=== PATIENT | female | born 1970 | race African-American/Black ===

== ENCOUNTER 2019-06-12 19:16 | Observation (INO) | payer BC, SELFPAY ==
[~2019-06-12 19:16] MED LIST: Iopamidol-370 76% 500 ML 1 ML ONE
[2019-06-12 19:47] LABS: #Basophils 0.1 thou/uL (0.0-0.2); #Eosinphils 0.3 thou/uL (0.0-0.7); #Lymphocytes 1.3 thou/uL (1.20-3.40); #Monocytes 0.4 thou/uL (0.11-0.59); #Neutrophils 6.2 thou/uL (1.40-6.50); %Basophils 0.6 % (0.0-1.0); %Eosinophils 3.6 % (0.0-10.0); %Lymphocytes 15.3 % (21.0-51.0); %Monocytes 5.4 % (0.0-10.0); %Neutrophils 75.2 % (42.0-75.0); Hemoglobin 13.9 g/dL (12.0-16.0); Mean Corpuscular HGB CONC 34.3 g/dL (32.0-36.0); Mean Corpuscular Hemoglobin 28.5 pg (27.0-31.0); Mean Corpuscular Volume 83.2 fL (78.0-98.0); Mean Platelet Volume 8.8 fL (7.4-10.4); Platelet Count 297 thou/uL (130-400); RBC Distribution Width 13.1 % (11.5-14.5); Red Blood Cell (RBC) Count 4.86 mill/uL (4.20-5.40); White Blood Cell (WBC) Count 8.2 thou/uL (4.8-10.8)
[2019-06-12 20:10] LABS: ALT (SGPT) 58 U/L (8-55); AST (SGOT) 69 U/L (5-34); Albumin 4.2 g/dL (3.5-5.0); Alkaline Phosphatase 118 U/L (40-110); Anion Gap 14 mmol/L (10-20); BUN (Urea Nitrogen) 10 mg/dL (7.0-18.7); Bilirubin, Total 0.8 mg/dL (0.2-1.2); CK (CPK) 68 U/L (29-168); Calc. Creatinine Clearance 0 mL/min (70-130); Carbon Dioxide 26 mmol/L (22-29); Chloride 103 mmol/L (98-107); Estimated GFR-MDRD 72; Globulin 3.5 g/dL (2.4-3.5); Glucose 120 mg/dL (70-105); Lipase 19 U/L (8-78); Protein, Total 7.7 g/dL (6.0-8.3); Sodium 140 mmol/L (136-145)
[2019-06-12 20:12] LABS: Potassium 2.7 mmol/L (3.5-5.1)
--- NOTE | 2019-06-12 20:17 | RAD ---
Portable frontal chest radiograph: 06/12/2019 COMPARISON: None HISTORY: Short of breath FINDINGS: Lungs are clear. Heart and mediastinal contours appear within normal limits. IMPRESSION: No acute findings.
[2019-06-12] MEDS ORDERED: Nitroglycerin 2% Ointment 1 INCH/1 GM Packet ONE (20:18)
--- NOTE | 2019-06-12 22:24 | CT ---
CT angiogram chest: 06/12/2019 COMPARISON: None HISTORY: Chest pain, assess for pulmonary arterial embolism TECHNIQUE: Axial CT imaging at 2.5 mm intervals through the chest with IV contrast using CT angiogram protocol. Coronal and oblique sagittal 3-D reformatted imaging obtained. FINDINGS: There are cholecystectomy clips present. Scattered small hypodensities within the left lobe of the liver suggest small cysts. No pleural, pericardial, or mediastinal fluid noted. There is an incompletely assessed hypodense lesion within the upper pole of the left kidney, better a ssessed on CT abdomen pelvis performed 10/23/2018. No evidence for acute pulmonary arterial embolism is noted. No pneumothorax on either side. Lung pare nchyma demonstrates no acute findings. No acute osseous abnormality. IMPRESSION: No evidence for pulmonary arterial embolism.
[2019-06-12] MEDS ORDERED: Aspirin Chewable 81 MG TAB ONE (23:10)
[2019-06-13] MEDS ORDERED: Nitroglycerin 0.4 MG TAB (25 Tab Bottle) PO PRN (00:26)
[2019-06-13 00:27] LABS: Phosphorus Less than 1.0 mg/dL (2.3-4.7)
[2019-06-13] MEDS ORDERED: Acetaminophen 325 MG TAB PO PRN (00:29)
[2019-06-13] MEDS ORDERED: Acetaminophen 650 MG Suppository PR PRN (00:29)
--- NOTE | 2019-06-13 00:37 | PDOC.HHP ---
Hospitalist HPI - History of Present Illness Chest pain History of Present Illness: Patient states she developed sudden chest pain while laying down watching TV this evening at 8pm. It was substernal, moving down and below her left breast. She also experienced discomfort in the left side of her neck. States that eased quickly but the chest pain remained constant. She described a sharp pain that was an 8/10 in severity. Reports breathing quickly and then felt numbness in both hands and her face. Her pain started to ease and on arrival was a 5/10 in severity. Since receiving aspirin and nitro bid she states her pain has become mild, 2/10 in severity. She is s/p lap cholecystectomy 1 week ago. Continues to have daily bowel movements. Reports mild discomfort due to surgery, described as sensitivity at incisions. Denies any fever or chills. No cough or hemoptysis. No n/v. Denies any headaches or dizziness. Has never had pain like this before and has never had cardiac investigations. ED Course: In the ED she had an EKG done showing a sinus arrhythmia. HR was 82. Labs done showed slightly elevated LFTs, lipase was normal. CBC normal. Her trop was negative. Potassium was low at 2.7. D-Dimer was done and elevated, prompting a CTA which was negative. CXR done was also unremarkable. She was given 60 mEq of Potassium. Aspirin 324 mg PO x 1 and 0.5 inch of nitro-bid placed. Hospitalist ROS - Review of Systems Constitutional: denies: fever, chills, sweats, weakness, malaise, other Eyes: denies: pain, vision change, conjunctivae inflammation, eyelid inflammation, redness, other ENT: denies: ear pain, ear discharge, nose pain, nose discharge, nose congestion , mouth pain, mouth swelling, throat pain, throat swelling, other Respiratory: reports: shortness of breath (reports hyperventilating when pain began, has improved.). denies: cough, dry, hemoptysis, SOB with excertion, pleuritic pain, sputum, wheezing, other Cardiovascular: reports: chest pain. denies: palpitations, orthopnea, paroxysmal noc. dyspnea, edema, light headedness, other Gastrointestinal: denies: nausea, vomiting, abdominal pain, diarrhea, constipation, melena, hematochezia, other Musculoskeletal: reports: neck pain (left side, lasting brief time). denies: shoulder pain, arm pain, back pain, hand pain, leg pain, foot pain, other Skin: denies: rash, lesions, jessica, bruising, other Neurological: denies: weakness, numbness, incoordination, change in speech, confusion, seizures, other Hospitalist History - Past Medical History Cardiac: reports: HTN - Past Surgical History Past Surgical History: reports: Appendectomy, Cholecystectomy, (x3), Hysterectomy - Family History Family History: reports: no pertinent history - Social History Smoking Status: Never smoker Alcohol: reports: None Drugs: reports: none Living Situation: With Family Activity level: independent ambulation - Exam General Appearance: NAD, awake alert Eye: PERRL, anicteric sclera ENT: normocephalic atraumatic, no oropharyngeal lesions, moist mucosa Neck: supple, symmetric, no lymphadenopathy Heart: RRR, no murmur, no gallops, no rubs, normal peripheral pulses Respiratory: CTAB, no wheezes, no rales, no ronchi, normal chest expansion, no tachypnea Gastrointestinal: soft, non-tender, non-distended, normal bowel sounds, no palpable masses, no guarding, no rigidity Extremities: no cyanosis, no clubbing, no edema Skin: normal turgor, no lesions, no rashes Neurological: cranial nerve grossly intact, normal sensation to touch, no weakness, no focal deficits, no new deficit Musculoskeletal: normal tone, normal strength, no muscle wasting Psychiatric: normal affect, normal behavior, A&O x 3 Hospitalist Results - Labs Result Diagrams: 06/12/19 19:38 06/12/19 19:39 Lab results: WBC 8.2 thou/uL (4.8-10.8) 06/12/19 19:38 Hgb 13.9 g/dL (12.0-16.0) 06/12/19 19:38 Hct 40.4 % (36.0-47.0) 06/12/19 19:38 MCV 83.2 fL (78.0-98.0) 06/12/19 19:38 Plt Count 297 thou/uL (130-400) 06/12/19 19:38 Neutrophils % 75.2 % (42.0-75.0) H 06/12/19 19:38 Sodium 140 mmol/L (136-145) 06/12/19 19:39 Potassium 2.7 mmol/L (3.5-5.1) L* 06/12/19 19:39 Chloride 103 mmol/L (98-107) 06/12/19 19:39 Carbon Dioxide 26 mmol/L (22-29) 06/12/19 19:39 BUN 10 mg/dL (7.0-18.7) 06/12/19 19:39 Creatinine 0.99 mg/dL (0.6-1.1) 06/12/19 19:39 Glucose 120 mg/dL (70-105) H 06/12/19 19:39 Calcium 10.0 mg/dL (7.8-10.44) 06/12/19 19:39 Total Bilirubin 0.8 mg/dL (0.2-1.2) 06/12/19 19:39 AST 69 U/L (5-34) H 06/12/19 19:39 ALT 58 U/L (8-55) H 06/12/19 19:39 Alkaline Phosphatase 118 U/L (40-110) H 06/12/19 19:39 Creatine Kinase 68 U/L (29-168) 06/12/19 19:39 Troponin I 0.013 ng/mL (< 0.028) 06/12/19 19:39 Serum Total Protein 7.7 g/dL (6.0-8.3) 06/12/19 19:39 Albumin 4.2 g/dL (3.5-5.0) 06/12/19 19:39 Lipase 19 U/L (8-78) 06/12/19 19:39 - Radiology Interpretation CT scan - chest Status: report reviewed by ak Hospitalist H&P A/P - Problem (1) Chest pain Code(s): R07.9 - CHEST PAIN, UNSPECIFIED Status: Acute (2) Hypokalemia Code(s): E87.6 - HYPOKALEMIA Status: Acute (3) Hypophosphatemia Code(s): E83.39 - OTHER DISORDERS OF PHOSPHORUS METABOLISM Status: Acute (4) Hypertension Code(s): I10 - ESSENTIAL (PRIMARY) HYPERTENSION Status: Chronic (5) Status post cholecystectomy Code(s): Z90.49 - ACQUIRED ABSENCE OF OTHER SPECIFIED PARTS OF DIGESTIVE TRACT Status: Acute - Plan Plan: Continue to trend troponins. Cardiac monitoring. Stress test in AM. Echo ordered. Lipid panel in AM as well as repeat electrolytes. Replace phosphorus with Kphos 30 mmol IV x 1. Potassium has been replaced, monitor. Patient asymptomatic at present. Monitor BP and resume home meds once verified. CODE STATUS: FULL CODE. Surrogate decision maker: Luis Douglass. Discussed with attending who agrees with plan as above.
[2019-06-13] MEDS ORDERED: Potassium Chloride 20 MEQ TAB ONE (00:45)
[2019-06-13] MEDS ORDERED: Sodium Chloride 0.45% 1,000 ML IV SCH (00:45)
[2019-06-13] MEDS ORDERED: Potassium Phosphate 30 MMOL in Sodium Chloride 0.9% 500 ML IVPB SCH (01:30)
[2019-06-13 06:02] LABS: #Basophils 0.1 thou/uL (0.0-0.2); #Eosinphils 0.3 thou/uL (0.0-0.7); #Lymphocytes 1.4 thou/uL (1.20-3.40); #Monocytes 0.6 thou/uL (0.11-0.59); #Neutrophils 3.5 thou/uL (1.40-6.50); %Eosinophils 5.9 % (0.0-10.0); %Lymphocytes 23.9 % (21.0-51.0); %Monocytes 9.4 % (0.0-10.0); %Neutrophils 59.8 % (42.0-75.0); Hemoglobin 12.5 g/dL (12.0-16.0); Mean Corpuscular HGB CONC 32.5 g/dL (32.0-36.0); Mean Corpuscular Hemoglobin 27.2 pg (27.0-31.0); Mean Corpuscular Volume 83.8 fL (78.0-98.0); Mean Platelet Volume 9.1 fL (7.4-10.4); Platelet Count 260 thou/uL (130-400); RBC Distribution Width 13.1 % (11.5-14.5); Red Blood Cell (RBC) Count 4.58 mill/uL (4.20-5.40); White Blood Cell (WBC) Count 5.9 thou/uL (4.8-10.8)
[2019-06-13 06:43] LABS: Troponin I Less than 0.010 ng/mL (< 0.028)
[2019-06-13 06:49] LABS: ALT (SGPT) 51 U/L (8-55); AST (SGOT) 39 U/L (5-34); Albumin 3.9 g/dL (3.5-5.0); Alkaline Phosphatase 104 U/L (40-110); Anion Gap 14 mmol/L (10-20); BUN (Urea Nitrogen) 8 mg/dL (7.0-18.7); Bilirubin, Total 0.6 mg/dL (0.2-1.2); Calc. Creatinine Clearance 0 mL/min (70-130); Calcium 9.1 mg/dL (7.8-10.44); Carbon Dioxide 25 mmol/L (22-29); Cardiac Risk 4.7 (Less than 4.5); Chloride 109 mmol/L (98-107); Cholesterol 182 mg/dl (< 200 Desired); Estimated GFR-MDRD 81; Globulin 2.7 g/dL (2.4-3.5); Glucose 96 mg/dL (70-105); HDL Cholesterol 39 mg/dL (>60 Neg Risk); LDL Cholesterol, Calculated 126 mg/dL; Potassium 3.9 mmol/L (3.5-5.1); Protein, Total 6.6 g/dL (6.0-8.3); Sodium 144 mmol/L (136-145); Triglycerides 83 mg/dL (Less than 150)
[2019-06-13 07:38] VITALS: BMI 30.8
[2019-06-13] MEDS ORDERED: Amlodipine 10 MG TAB PO SCH (09:00)
[2019-06-13] MEDS ORDERED: Famotidine 20 MG TAB PO SCH (09:00)
[2019-06-13] MEDS ORDERED: Magnesium Chloride 64 MG TAB PO SCH (09:00)
[2019-06-13] MEDS ORDERED: Aspirin 81 mg Enteric Coated Tablet PO SCH (09:00)
--- NOTE | 2019-06-13 13:09 | PDOC.HOSPP ---
- Subjective Encounter Date: 06/13/19 Encounter Time: 08:45 Subjective: Patient seen and examined. No new complaints. No overnight events - Objective Vital Signs & Weight: Vital Signs (12 hours) Pulse Resp BP Pulse Ox 06/13/19 07:15 84 16 149/93 H 100 Weight Weight 174 lb Result Diagrams: 06/13/19 05:50 06/13/19 05:50 Radiology Reviewed by me: Yes EKG Reviewed by me: Yes Hospitalist ROS - Review of Systems ENT: denies: ear pain, ear discharge, nose pain, nose discharge, nose congestion , mouth pain, mouth swelling, throat pain, throat swelling, other Respiratory: denies: cough, dry, shortness of breath, hemoptysis, SOB with excertion, pleuritic pain, sputum, wheezing, other Cardiovascular: denies: chest pain, palpitations, orthopnea, paroxysmal noc. dyspnea, edema, light headedness, other Gastrointestinal: denies: nausea, vomiting, abdominal pain, diarrhea, constipation, melena, hematochezia, other Genitourinary: denies: dysuria, frequency, incontinence, hematuria, retention, other Musculoskeletal: denies: neck pain, shoulder pain, arm pain, back pain, hand pain, leg pain, foot pain, other - Medication Medications: Active Medications Generic Name Dose Route Start Last Admin Trade Name Shashiq PRN Reason Stop Dose Admin Amlodipine Besylate 10 mg 06/13/19 09:00 06/13/19 09:56 Norvasc PO 10 mg DAILY KAROL Administration Aspirin 81 mg 06/13/19 09:00 06/13/19 09:56 Ecotrin PO 81 mg DAILY KAROL Administration Famotidine 20 mg 06/13/19 09:00 06/13/19 09:56 Pepcid PO 20 mg BID KAROL Administration Sodium Chloride 1,000 mls @ 50 mls/hr 06/13/19 00:45 06/13/19 01:57 1/2 Normal Saline IV 1,000 mls .Q20H KAROL Administration Magnesium Chloride 64 mg 06/13/19 09:00 06/13/19 09:56 Slow-Mag PO 64 mg BID KAROL Administration Sodium Chloride 10 ml 06/13/19 09:00 06/13/19 09:57 Flush - Normal Saline IVF Not Given Q12HR KAROL - Exam General Appearance: NAD, awake alert Eye: PERRL, anicteric sclera ENT: normocephalic atraumatic, no oropharyngeal lesions Neck: supple, symmetric, no JVD, no thyromegaly Heart: RRR, no murmur, no gallops, no rubs Respiratory: CTAB, no wheezes, no rales, no ronchi Gastrointestinal: soft, non-tender, non-distended, normal bowel sounds Extremities: no cyanosis, no clubbing, no edema Skin: normal turgor, no lesions Neurological: cranial nerve grossly intact, no focal deficits Musculoskeletal: normal tone, normal strength Psychiatric: normal affect, normal behavior Hosp A/P (1) Chest pain Code(s): R07.9 - CHEST PAIN, UNSPECIFIED Status: Acute (2) Hypokalemia Code(s): E87.6 - HYPOKALEMIA Status: Acute (3) Hypophosphatemia Code(s): E83.39 - OTHER DISORDERS OF PHOSPHORUS METABOLISM Status: Acute (4) Hypertension Code(s): I10 - ESSENTIAL (PRIMARY) HYPERTENSION Status: Chronic - Plan old records reviewed/req stress test and echo medication reviewed and continue to provide symptomatic care
[2019-06-13] MEDS ORDERED: ADENOSINE 60 MG/20 ML VIAL ONE (14:52)
[2019-06-13 16:05] VITALS: BP 146/89; TEMP 98.8
--- NOTE | 2019-06-13 16:20 | NM ---
NM Cardiac Stress W EF WF History: Chest pain Comparison: Stress and rest performed after the intravenous administration of 27 and 9.3 mCi techneti um 99m sestamibi, respectively. Findings: Adequate left ventricular uptake of radiotracer. No evidence for scar or ischemia. Normal w all motion. Calculated ejection fraction is 66%. Impression: Normal nuclear medicine cardiac stress test and ejection fraction.
--- NOTE | 2019-06-14 08:01 | DIS ---
DATE OF ADMISSION: 06/13/2019 DATE OF DISCHARGE: 06/13/2019 PRIMARY CARE PHYSICIAN: Grover Admission. DISCHARGE DISPOSITION: Home. PRIMARY DISCHARGE DIAGNOSES: 1. Chest pain, ruled out acute coronary syndrome. 2. Abnormal electrolytes with hypokalemia and hypophosphatemia, replaced. SECONDARY DISCHARGE DIAGNOSIS: Hypertension. PRIMARY PROCEDURE/OPERATION: None. RADIOLOGICAL INVESTIGATION: CT angiography negative for PE. Chest x-ray normal. Stress test negative for any ischemia. Echocardiography showed normal EF. SIGNIFICANT LABORATORY DATA: Hemoglobin 12.5, creatinine 0.89. Cardiac enzyme negative. DISCHARGE MEDICATIONS: The patient will continue amlodipine 10 mg p.o. daily. CONTRAINDICATION: None. CODE STATUS: Full code. INPATIENT BUSINESS ANALYST: None. ALLERGIES: NO KNOWN DRUG ALLERGIES. DISCHARGE PLAN: Posthospital the patient will follow up with primary care physician. HOSPITAL COURSE: A 49-year-old female who was admitted by Kaycee Carlos. Please see her H and P for further details. The patient was having initially chest pain. In the emergency room, chest x-ray and CT angio negative for any PE. Subsequently, patient was observed on telemetry floor. Her serial cardiac enzymes were negative. The patient had abnormal electrolytes that was replaced while in hospital. The patient was completely asymptomatic. While in the hospital, we did a stress test that came back negative. Echocardiography is normal. The patient wanted to go home and that is why we discharged her on previous medication. The patient will follow up with primary care physician. Job ID: [id number]
--- NOTE | 2019-06-14 13:51 | STRESS ---
Acquisition Time: 2019-06-13 12:50:55 Total Exercise Time: 00:04:00 Test Indications: CHEST PAIN Medications: Protocol: ADENOSINE Max HR: 117 BPM 68% of Pred: 170 BPM Max BP: 134/086 mmHG Max Work Load: 1.0 METS RESTING ECG: NORMAL SINUS RHYTHM AT 79 BPM SYMPTOMS: SOB, CHEST DISCOMFORT NORMAL BLOOD PRESSURE RESPONSE ECTOPY: NONE ECG RESPONSE: NO SIGNIFICANT CHANGES INTERPRETATION: INDETERMINATE ECG/AWAIT NUCLEAR IMAGES FOR DEFINITIVE DIAGNOSIS COMMENTS: T-WAVE FLATTENING/INVERSION OF INFEROLATERAL LEADS WITH ADENOSINE INFUSION Confirmed by SAURAV SIU ([id number]), editorial cartoonist EMELY JOHNSTON ([id number]) on 06/14/2019 1:51:08 PM Referred By: Zoe HAMMOND Confirmed By:SAURAV SIU
--- NOTE | 2019-06-17 00:59 | EKG ---
Test Reason : Blood Pressure : / mmHG Vent. Rate : 082 BPM Atrial Rate : 082 BPM P-R Int : 112 ms QRS Dur : 086 ms QT Int : 400 ms P-R-T Axes : 041 018 016 degrees QTc Int : 467 ms Normal sinus rhythm with sinus arrhythmia Normal ECG Confirmed by AMADO PEREIRA DO ([id number]), editor at large ANGELINA BETANCOURT ([id number]) on 06/17/2019 12:59:23 AM Referred By: Confirmed By:AMADO PEREIRA DO
== END 2019-06-13 19:06 | disposition home or self-care (01) ==
LOC: ERS 19:16 → 2SW 23:56 → ERHOLD 06-13 01:07 → 2SW 06-13 07:35
PROVIDERS: ADMIT Internal Medicine; ATTEND Internal Medicine
DX: R07.89 Other chest pain (principal); E87.6 Hypokalemia; E83.39 Other disorders of phosphorus metabolism; I10 Essential (primary) hypertension; Z79.899 Other long term (current) drug therapy; Z90.49 Acquired absence of other specified parts of digestive tract
CPT/HCPCS: 36415; 71045; 71275; 78452; 80053; 80061; 82550; 83690; 83735; 84100; 84443; 84484; 85025; 93005; 93017; 93306; 94760; 96360; 96361; A9500; G0378; J0153; J7050; Q9967